=== PATIENT | female | born 1945 | race Two or more races ===

== ENCOUNTER 2020-08-17 22:21 | Emergency (ER) | payer OTHER, MEDICAID ==
[~2020-08-17] VITALS: Ht 154.9 cm; Wt 72.6 kg
[2020-08-18 02:42] LABS: Albumin 3.6 g/dL (3.4-5.0); Anion Gap 9 (5-15); Calcium 9.1 mg/dL (8.5-10.1); Carbon Dioxide 25 mmol/L (21-32); Chloride 105 mmol/L (98-107); Glucose 90 mg/dL (74-106); Magnesium 2.5 mg/dL (1.6-2.6); Potassium 4.1 mmol/L (3.5-5.1); Sodium 139 mmol/L (136-145)
[2020-08-18 02:47] LABS: Alanine Aminotransferase 47 U/L (13-56); Alkaline Phosphatase 100 U/L (45-117); Aspartate Aminotransferase 31 U/L (15-37); BUN/Creatinine Ratio 13.6; Bilirubin, Total 0.8 mg/dL (0.2-1.0); Blood Urea Nitrogen 18 mg/dL (7-18); GFR African American 50 mL/min; GFR Non-African American 42 mL/min; Total Protein 7.2 g/dL (6.4-8.2)
[2020-08-18 02:55] LABS: Basophils # (auto) 0 10 ^3/uL (0-0.2); Basophils % (auto) 0.4 % (0.0-2.0); Eosinophils # (auto) 0.3 10 ^3/uL (0-0.8); Eosinophils % (auto) 3.8 % (0.0-7.0); Hematocrit 36.7 % (36.0-46.0); Hemoglobin 12.3 g/dL (12.2-16.2); Lymphocytes # (auto) 1.5 10 ^3/uL (0.4-5.4); Lymphocytes % (auto) 18.8 % (10.0-50.0); Mean Corpuscular Hemoglobin 29.7 pg (28.0-32.0); Mean Corpuscular Hgb Conc. 33.5 g/dL (32.0-36.0); Mean Corpuscular Volume 88.6 fL (80.0-100.0); Monocytes # (auto) 0.7 10 ^3/uL (0-1.3); Monocytes % (auto) 9.5 % (0.0-12.0); Neutrophils # (auto) 5.3 10 ^3/uL (1.6-8.6); Neutrophils % (auto) 67.5 % (37.0-80.0); Nucleated Red Blood Cells % 0.2 %; Platelet Count (auto) 191 10^3/uL (140-450); Red Blood Cells 4.14 10^6/uL (4.0-5.20); Red Cell Distribution Width 13.3 % (11.8-14.3); White Blood Cell 7.9 10^3/uL (4.4-10.8)
[2020-08-18] MEDS ORDERED: hydrALAZINE HCL 20 MG/ML VL IV ONE (04:30)
[2020-08-18] MEDS ORDERED: ATROPINE SULF 1 MG/10ml SYR IV ONE ×2 (05:30→05:45)
[2020-08-18] MEDS ORDERED: ATROPINE SULFATE 1 MG/1 ML VIAL ONE (05:38)
[2020-08-18] MEDS: GLUCAGON HYDROCHLORIDE (RDNA) 1 MG VIAL IV ONE ×2 (07:53→09:31)
[2020-08-18] MEDS ORDERED: ACETAMINOPHEN 500 MG TAB PO ONE (08:30)
[2020-08-18 09:01] LABS: Urine Bacteria NONE SEEN /hpf (None Seen); Urine Blood Negative /uL (Negative); Urine Specific Gravity 1.016 (1.001-1.035); Urine WBC 18 /hpf (0 - 5)
[2020-08-18] MEDS ORDERED: cefTRIAXone 1GM/50ML D5W 50 ML IV ONE (10:30)
[2020-08-18 13:19] VITALS: BP 166/52
== END 2020-08-18 10:08 | disposition home or self-care (01) ==
LOC: EDBD 22:24 → ER 22:24
DX: R00.1 Bradycardia, unspecified (principal); T44.7X5A Adverse effect of beta-adrenoreceptor antagonists, initial encounter; N39.0 Urinary tract infection, site not specified; I12.9 Hypertensive chronic kidney disease with stage 1 through stage 4 chronic kidney disease, or unspecified chronic kidney disease; N18.9 Chronic kidney disease, unspecified; F41.9 Anxiety disorder, unspecified; F32.9 Major depressive disorder, single episode, unspecified; Z20.822 Contact with and (suspected) exposure to COVID-19; Y92.9 Unspecified place or not applicable
CPT/HCPCS: 36415; 70450; 80053; 81001; 83735; 84484; 85025; 87426; 93005; 96365; 96375; 99285; C9803; J0461; J0696; U0003

== ENCOUNTER 2021-10-30 12:36 | Emergency (ER) | payer OTHER, MEDICAID ==
[~2021-10-30] VITALS: Ht 154.9 cm; Wt 68.5 kg
[2021-10-30] MEDS ORDERED: ASPirin 81 mg TAB PO ONE (13:45)
[2021-10-30] MEDS ORDERED: SODIUM CHLORIDE 0.9% 1,000 ML IV ONE (13:45)
[2021-10-30 14:44] LABS: Basophils # (auto) 0 10 ^3/uL (0-0.2); Basophils % (auto) 0.4 % (0.0-2.0); Eosinophils # (auto) 0.2 10 ^3/uL (0-0.8); Eosinophils % (auto) 2.7 % (0.0-7.0); Hematocrit 40.5 % (36.0-46.0); Hemoglobin 13.3 g/dL (12.2-16.2); Lymphocytes # (auto) 1.5 10 ^3/uL (0.4-5.4); Lymphocytes % (auto) 22.1 % (10.0-50.0); Mean Corpuscular Hgb Conc. 32.8 g/dL (32.0-36.0); Mean Corpuscular Volume 85.3 fL (80.0-100.0); Monocytes # (auto) 0.7 10 ^3/uL (0-1.3); Monocytes % (auto) 10.1 % (0.0-12.0); Neutrophils # (auto) 4.3 10 ^3/uL (1.6-8.6); Neutrophils % (auto) 64.7 % (37.0-80.0); Nucleated Red Blood Cells % 0.1 %; Red Blood Cells 4.74 10^6/uL (4.0-5.20); Red Cell Distribution Width 14.5 % (11.8-14.3); White Blood Cell 6.7 10^3/uL (4.4-10.8)
[2021-10-30 14:59] LABS: Albumin 3.7 g/dL (3.4-5.0); Calcium 9.7 mg/dL (8.5-10.1); Potassium 4.3 mmol/L (3.5-5.1)
[2021-10-30 15:05] LABS: BUN/Creatinine Ratio 19.6; Bilirubin, Total 0.6 mg/dL (0.2-1.0); Total Protein 7.3 g/dL (6.4-8.2)
[2021-10-30] MEDS ORDERED: NAP500T PO (18:23)
[2021-10-30 18:56] VITALS: BP 149/38
[2021-10-30 19:38] LABS: Urine Bacteria NONE SEEN /hpf (None Seen); Urine Blood Negative /uL (Negative); Urine Specific Gravity 1.018 (1.001-1.035); Urine WBC 2 /hpf (0 - 5)
== END 2021-10-30 19:31 | disposition home or self-care (01) ==
LOC: ER 12:36
DX: R07.89 Other chest pain (principal); I12.9 Hypertensive chronic kidney disease with stage 1 through stage 4 chronic kidney disease, or unspecified chronic kidney disease; N18.9 Chronic kidney disease, unspecified; R00.1 Bradycardia, unspecified; Z90.49 Acquired absence of other specified parts of digestive tract; Z90.89 Acquired absence of other organs; Z97.10 Presence of artificial limb (complete) (partial), unspecified
CPT/HCPCS: 36415; 71046; 80053; 81001; 83735; 84443; 84484; 85025; 93005